=== PATIENT | female | born 1985 | race Caucasian/White ===

== ENCOUNTER 2021-07-11 08:25 | Emergency (ER) | payer MEDICAID ==
[~2021-07-11] VITALS: Ht 162.6 cm; Wt 68.0 kg
[2021-07-11 08:49] VITALS: BP 92/71
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
[2021-07-11] MEDS: DIPHTH,PERTUSS(ACELL),TET TOX 0.5 ML DISP.SYRIN. VAX IM ONE (10:02)
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
[2021-07-11] MEDS ORDERED: TRAM100T10 PO (11:27)
== END 2021-07-11 11:35 | disposition home or self-care (01) ==
LOC: ER 08:25
DX: S50.812A Abrasion of left forearm, initial encounter (principal); M54.2 Cervicalgia; R07.81 Pleurodynia; M54.6 Pain in thoracic spine; Z88.0 Allergy status to penicillin; Z88.1 Allergy status to other antibiotic agents; V29.9XXA Motorcycle rider (driver) (passenger) injured in unspecified traffic accident, initial encounter; Y93.89 Activity, other specified; Y92.89 Other specified places as the place of occurrence of the external cause; Y99.8 Other external cause status
CPT/HCPCS: 71100; 72040; 90471; 90715; 99284